=== PATIENT | female | born 1940 | race Caucasian/White ===

== ENCOUNTER 2016-05-29 09:18 | Emergency (ER) | payer OTHER, MEDICARE ==
[2016-05-29 09:38] VITALS: RESP 16; TEMP 97.6
[2016-05-29 10:02] LABS: BASOPHILS # (AUTO) 0.04 10*3/UL; BASOPHILS % (AUTO) 0.4 % (0-1); EOSINOPHILS % (AUTO) 0.9 % (0-8); HEMATOCRIT 47.2 % (37.0-47.0); HEMOGLOBIN 16.5 g/dL (12.0-16.0); IMM GRAN % (AUTO) 0.4 % (0-5); IMM GRAN# (AUTO) 0.04 10*3/UL; LYMPHOCYTES # (AUTO) 1.35 10*3/uL; LYMPHOCYTES % (AUTO) 12.2 % (10-50); MEAN CORPUSCULAR HEMOGLOBIN 30.6 PG (27-31); MEAN PLATELET VOLUME 9.9 FL (7.4-12.2); MONOCYTES # (AUTO) 1.14 10*3/UL (0.3-0.8); MONOCYTES % (AUTO) 10.3 % (5-15); NEUTROPHILS # (AUTO) 8.43 10*3/UL; NEUTROPHILS % (AUTO) 75.8 % (50-80); PLATELET MORPHOLOGY COMMENT NORMAL MORPHOLOGY (NORM); RDW COEFFICIENT OF VARIATION 14.5 % (11.5-14.5); RED BLOOD COUNT 5.39 10^6/uL (4.20-5.40)
--- NOTE | 2016-05-29 11:03 | DI ---
HISTORY: Patient complaining of severe frontal headache that radiates to right side and right sinus pain. History of sinus surgery. TECHNIQUE: Contiguous axial images of the paranasal sinuses were obtained and submitted for interpre tation. FINDINGS: There is hyperostosis frontalis interna. The frontal sinuses are clear. There is mucosal thickening involving anterior and posterior ethmoid air cells bilaterally. The sphenoid sinuses are generally clear. There is significant mucosal thickening involving the maxillary sinuses bilaterall y. There is thickening of the maxillary antrum bilaterally. The left maxillary sinus is partially s eptated. Dental amalgam causes beam hardening artifacts that limit the sensitivity of exam. The orbital globes are grossly unremarkable. The retro-orbital fat is not effaced. IMPRESSION: 1. Features suggestive of sinusitis in the appropriate clinical context.
--- NOTE | 2016-05-29 11:05 | DI ---
HISTORY: Patient complaining of severe frontal headache that radiates to right side and right sinus pain. History of sinus surgery. TECHNIQUE: Contiguous axial images of the brain were obtained and submitted for interpretation. FINDINGS: There is no acute infarct, intracranial hemorrhage, or mass effect. There is no hydroceph alus, or significant midline shift. Punctate hyperdense focus in the left basal ganglia is probably a focus of calcification. There is senescent change. Asymmetric hypodensities in the periventricular and deep white matter suggesting areas of chronic annia rovascular ischemia. Paranasal sinus findings are described in a separate report. IMPRESSION: 1. No intracranial hemorrhage. MRI is recommended if clinical symptoms persist.
--- NOTE | 2016-05-29 16:44 | PDOC ---
General Adult HPI - General Chief Complaint: General Medical Stated Complaint: BAUMAN, COUGH, PAIN Date Seen by Provider: 05/29/16 Time Seen by Provider: 09:20 Source: POSITIVE: Patient, Other (Daughter) Exam Limitations: POSITIVE: No limitations Nurse's Notes Reviewed & Considered: Yes - History of Present Illness Initial Comment: The patient is a 76 year old female. She complains of pain over the right frontal, right maxillary and right ethmoid sinus area. She also has some discomfort radiating toward her right ear and into the right frontal area of her head. She does complain of a a history of chronic headaches, mostly right- sided, and this has been worse over the past few days. Patient states she has a history of chronic sinus problems. She underwent sinus surgery in 2001 and had surgery to her right ear, apparently a tympanostomy, which later was revised. She is under the care of a dispute resolution specialist in [place]. She states she was started on Keflex 3 weeks ago by her dispute resolution specialist for "a right ear infection"and this was changed to Augmentin by her primary care provider. She was seen by a primary care provider at the walk-in clinic on May 12 and was started on doxycycline for a presumed sinus infection, and she states this has not been helpful. She complains of a prominent congestion on the right side of her nose and states she has used Afrin spray a couple times over the last couple of days. She also uses Flomax. She has had some cough and a lot of "nasal drainage". No known fevers. Have you received a tetanus shot in the past 10 years?: Yes Body Location Affected: REPORTS: Head, Other (Over right sinuses as above) Timing: REPORTS: Gradual, Getting Worse Duration: <1 week Severity: Moderate Quality: REPORTS: "Pain", Tenderness Context: DENIES: None, Sitting, Standing, Activity, Emotional stress, Coughing, Recent Trauma, Recent Surgery, Sleep, Rest, Lifting, Turning, Bending, Fall, Near Fall, Other Modifying Factors: improves with: Coughing. worse with: Nothing, Analgesics, Antacids, Breathing, Defecating, Vomiting, Eating, Exercise, Lying down, Urinating, Palpation, Movement, Rest, Upright Position, Walking, Remaining Still , Other Similar Symptoms Previously: Yes Recent Care Received: REPORTS: Recently Seen, Treated by MD (As above) Any Prior Injuries Related to Current Complaint?: No - Patient Home Medications Home Medications: Home Medications Potassium Chloride 1 tab PO BID 12/19/11 Aspirin [Aspir 81] 1 tab PO DAILY 01/26/13 Diltiazem 24Hr ER [Cardizem Cd] 180 mg PO BID 12/13/13 Pantoprazole Sodium [Protonix] 40 mg PO DAILY #90 tab 05/24/15 Sotalol HCl [Sotalol] 80 mg PO BID tab 07/26/15 Metformin HCl 500 mg ORAL BID #180 tab 11/30/15 Levothyroxine Sodium [Synthroid] 75 mcg PO DAILY #90 tab 04/06/16 Diclofenac Sodium [Voltaren] 4 gm TOPICAL QID #1 tube 04/16/16 Lisinopril 1 tab PO DAILY #30 tab 04/26/16 Doxycycline Hyclate 1 cap PO BID #20 cap 05/12/16 Fluticasone Propionate [Flonase Allergy Relief] 1 spr YARELIS BID #1 spr 05/12/16 Amox Tr/Potassium Clavulanate [Augmentin 875-125 Tablet] 1 each PO Q12H #28 tablet 05/29/16 - Patient Allergies Allergies/Adverse Reactions: Allergies Allergy/AdvReac Type Severity Reaction Status Date / Time No Known Allergies Allergy Verified 05/29/16 09:26 Past Medical History - heen HEENT History: Hard of Hearing Additional HEENT History: Right ear Cardiovascular History: Hypertension, Arrhythmia, Hyperlipidemia Additional Cardiovasular History: ATRIAL FIBRILLATION Respiratory History: Other (please comment) Additional Respiratory History: TULAREMIA 2006 Gastrointestinal History: Irritable Bowel Syndrome, Peptic Ulcer Disease Additional Gastrointestinal History: HX OF INTERMITTENT BLACK TARRY STOOLS Genitourinary History: Denies History Endocrine History: Type 2 Diabetes (oral), Hypothyroidism Musculoskeletal History: Arthritis, Osteoporosis Prosthesis or Implant: No Neurological History: Denies History Blood Disorders: Denies History Psychiatric History: Denies History History of Sexually Transmitted Diseases: No Female Reproductive History: Hysterectomy Obstetrical History: Denies History Cancer History: Denies History In Past Year Been Physically Harmed or Verbally Threatened: No History of MDRO: Yes History of Other Communicable Diseases: No Tobacco Use: Never Smoker Alcohol Use: None Substance Use Type: None Previous Surgical History: No Type / Date of Surgery: BACK. HYSTER. EAR. SINUS. EYELID SURGERY Anesthesia Reactions: No Malignant Hyperthermia: No Significant Family History: No pertinent family hx Past Medical History Reviewed: Reviewed - No Changes ROS - Limitations ROS Limitations: No Limitations Constitution: REPORTS: Denies Symptoms Cardiovascular: REPORTS: Denies Cardiac Symptoms Respiratory: REPORTS: Cough Productive (Of mucoid sputum) Neurological: REPORTS: Denies Neuro Symptoms Gastrointestinal: REPORTS: Denies GI Symptoms Endocrine: REPORTS: Denies Symptoms Musculoskeletal: REPORTS: Denies MS Symptoms Genitourinary: REPORTS: Denies Symptoms Eyes: REPORTS: Denies Symptoms ENT: REPORTS: Earache, Nasal Drainage, Sinus Problem (Right; as above) Skin: REPORTS: Denies Skin Symptoms Lympathic: REPORTS: Denies Lympathic Symptoms Immunologic: POSITIVE: Denies Symptoms Psychiatric: POSITIVE: Denies Psych Symptoms General Adult Exam - General Appearance General Appearance: POSITIVE: Alert, Cooperative, No Acute Distress, No Evidence of Trauma - HEENT HEENT: POSITIVE: Head Inspection Nml, Eyes Inspection Nml, Oral/Dental Inspect. Nml, Pharynx Inspect. Nml, PERRL, EOMI, TM Erythema (Right), Purulent Nasal Drainage (Especially right naris). NEGATIVE: Ears Inspection Nml (Right tympanic membrane scarred with some erythema; left tympanic membrane also is appears scarred with loss of landmarks), Nose Inspection Nml (Prominent nasal congestion, especially right), Pharyngeal Erythema, Pharyngeal Exudate, Oral Lesions, Dental Caries, Dry Mucous Membranes, Foreign Body Present - Pupils Pupil Size: 3 mm: Bilateral (PERRLA) - Neck Neck: POSITIVE: Normal Inspection, Thyroid Normal - Respiratory Respiratory: POSITIVE: No Respiratory Distress, Breath Sounds Normal, Chest Non- Tender - Cardiovascular Cardiovascular: POSITIVE: Regular Rate & Rhythm, No Murmur, No Gallop, PMI Normal Peripheral Pulses: Radial (R): 2+, Radial (L): 2+ - Abdomen Abdomen: Soft: (All Quadrants), Normal Bowel Sounds: (All Quadrants), Denies Tenderness: (All Quadrants), No Splenomegaly: (All Quadrants), No Hepatomegaly: (All Quadrants), No Guarding: (All Quadrants), No Rebound: (All Quadrants), No Palpable Pulse: (All Quadrants), No Palpabale Mass: (All Quadrants), No Distention: (All Quadrants), No Rigidity: (All Quadrants) - Back Back: POSITIVE: Normal Inspection - Skin Skin: POSITIVE: Normal Color, Warm, Dry, No Rash - Extremities Extremity: Non-Tender: (All Extremities), Normal ROM: (All Extremities), Normal Inspection: (All Extremities) - Neurological / Psychological Neurological: 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 CT scan maxillofacial bones shows changes compatible with sinusitis Lab Results Reviewed: Yes Lab Results:: Laboratory Results 05/29/16 Range/Units 09:57 WBC 11.10 H (4.8-10.8) 10^3/uL RBC 5.39 (4.20-5.40) 10^6/uL Hgb 16.5 H (12.0-16.0) g/dL Hct 47.2 H (37.0-47.0) % MCV 87.6 (81-99) FL MCH 30.6 (27-31) PG MCHC 35.0 (33-37) g/dL RDW Std Deviation 46.2 (39-50) fL RDW Coeff of Juanita 14.5 (11.5-14.5) % Plt Count 248 (140-350) 10*3/uL MPV 9.9 (7.4-12.2) FL Immature Gran % (Auto) 0.4 (0-5) % Neut % (Auto) 75.8 (50-80) % Lymph % (Auto) 12.2 (10-50) % Nelson % (Auto) 10.3 (5-15) % Eos % (Auto) 0.9 (0-8) % Baso % (Auto) 0.4 (0-1) % Immature Gran # (Auto) 0.04 10*3/UL Neut # (Auto) 8.43 10*3/UL Lymph # (Auto) 1.35 10*3/uL Nelson # (Auto) 1.14 H (0.3-0.8) 10*3/UL Eos # (Auto) 0.10 10*3/UL Baso # (Auto) 0.04 10*3/UL WBC Morphology Comment Normal morphology (NORM) Plt Morphology Comment Normal morphology (NORM) RBC Morph Comment Normal morphology (NORM) - Patient's Progress Pain Medication Addressed: POSITIVE: Yes (Recommended Advil or Tylenol) School/Work Release Addressed: POSITIVE: Not Applicable Re-Examine Time: 11:15 Re-Examine Comment: Patient states her discomfort is less than she has been in the emergency room. Status: POSITIVE: Improved, Re-Examined Antibiotics Given: Yes (Augmentin, 825, twice daily; discontinue doxycycline) - Consult Counseled: POSITIVE: Patient, Family, RE: Lab Results, RE: Radiology Results, RE : DX, RE: Need for F/U Patient Care Time - Estimated PCT Patient Care Time (In Minutes): 45 Vital Signs - Recent Vital Signs Vital Signs: Vital Signs (Last 8 hours) Temp Pulse Resp BP Pulse Ox 05/29/16 09:31 97.6 F 101 H 16 112/67 93 - VS Reviewed Vital Signs Reviewed: Yes Discharge Clinical Impression: Sinusitis Discharge Disposition: Discharged to Home Condition: Good Prescriptions / Orders: Amox Tr/Potassium Clavulanate [Augmentin 875-125 Tablet] 1 each PO Q12H #28 tablet Patient Instructions Given at Discharge: Sinusitis (ED) Additional Instructions: Discontinue doxycycline. Augmentin, one twice daily for 14 days. Claritin or zyrtec daily. Follow up with your otolyryngologist and primary care provider. Return here any time if condition worsens. Tylenol or Advil for discomfort. Follow Up With: KARINE HASTINGS [Primary Care Provider] - (Instructions as above. Follow up with your primary care providers and ENT specialists. Return here if condition worasens in any way.)
== END 2016-05-29 11:39 | disposition home or self-care (01) ==
LOC: ER 09:18
DX: J01.01 Acute recurrent maxillary sinusitis (principal); R51 Headache; R05 Cough; E11.9 Type 2 diabetes mellitus without complications
CPT/HCPCS: 36415; 70450; 70486; 85025; 99283

== ENCOUNTER → 2016-09-11 | Outpatient (CLI) | payer OTHER, MEDICARE | LOC: MMPC 09:00 | PROVIDERS: ATTEND Family Medicine | DX: H92.03 Otalgia, bilateral (principal); M54.2 Cervicalgia; R51 Headache; E78.5 Hyperlipidemia, unspecified; E03.9 Hypothyroidism, unspecified; Z78.0 Asymptomatic menopausal state ==

== ENCOUNTER → 2016-09-17 | Outpatient (CLI) | payer OTHER, MEDICARE ==
--- NOTE | 2016-09-17 18:27 | DI ---
CT BONE DENSITOMETRY OF THE SPINE AND HIP, 09/17/2016 12:40 PM : Clinical History: Asymptomatic post menopausal patient. Screening. Previous Exam: None at this facility. 3D Quantitative CT (QCT) Bone Mineral Densitometry: The [place] scans are normal. Low dose scans are sampled through the midbodies of L2 and L3 Average b one mineral density (BMD) is 66.4 mg/mL corresponding to a volumetric T-score of -3.9, and Z-score of 0.5. The [employer]'s (ACR) volumetric QCT BMD conversion table categorizes this patient as having osteoporosis of the lumbar spine. The previous exam gave an bone mineral density of 73.[address] X-Ray Absorptiometry (CTXA) Bone Mineral Densitometry of the Left Hip: Total hip BMD: 697 mg/cm2 T-score: -1.9 Z-score: -0.2 Femoral neck BMD: 568 mg/cm2 T-score: -2.0 Z-score: -0.3 READIN. The QCT lumbar spine BMD value by ACR's 3D volumetric to 2D areal conversion categorizes this pat ient as having osteoporosis of the lumbar spine. The QCT spine T-score is -3.9, also indicating osteo porosis of the lumbar spine. 2. The CTXA total hip and femoral neck BMD T-scores are -1.9 and -2.0, respectively. The left total hip T-score indicates this patient has osteopenia of the total hip.
== END ==
LOC: CT 12:30
PROVIDERS: ATTEND Nurse Practitioner Family
DX: Z78.0 Asymptomatic menopausal state (principal); Z13.820 Encounter for screening for osteoporosis
CPT/HCPCS: 77078

== ENCOUNTER → 2016-10-15 | Outpatient (CLI) | payer OTHER, MEDICARE ==
[2016-10-15 06:40] LABS: CALCIUM 9.3 mg/dL (8.7-10.7)
== END ==
LOC: LAB 06:15
PROVIDERS: ATTEND Family Medicine
DX: M81.0 Age-related osteoporosis without current pathological fracture (principal)
CPT/HCPCS: 36415; 82310; 82565

== ENCOUNTER → 2016-10-24 | Outpatient (CLI) | payer OTHER, MEDICARE | LOC: MMPC 09:00 | PROVIDERS: ATTEND Family Medicine | DX: M81.0 Age-related osteoporosis without current pathological fracture (principal) | CPT/HCPCS: G0463; J0897 ==